=== PATIENT | male | born 2005 | race African-American/Black ===

== ENCOUNTER 2023-04-10 12:02 | Emergency (ER) | payer MEDICAID ==
[~2023-04-10] VITALS: Ht 185.4 cm; Wt 65.0 kg
[2023-04-10 12:20] VITALS: BP 121/58; PULSE 91; RESP 16; TEMP 100.7
[2023-04-10 12:35] LABS: COVID AG,FIA SOURCE NASAL SWAB
[2023-04-10 13:07] LABS: INFLUENZA TYPE A NEGATIVE FOR TYPE A (NEGATIVE); INFLUENZA TYPE B NEGATIVE FOR TYPE B (NEGATIVE); SARS-COV2 (COVID) ANTIGEN,FIA Negative (Negative)
[2023-04-10] MEDS ORDERED: BENZ-227 PO (14:49)
[2023-04-10] MEDS ORDERED: AMOX1TAB16 PO (14:49)
== END 2023-04-10 15:07 | disposition home or self-care (01) ==
LOC: EMS 12:02
DX: J18.9 Pneumonia, unspecified organism (principal); Z20.822 Contact with and (suspected) exposure to COVID-19
CPT/HCPCS: 71045; 87804; 99284